=== PATIENT | male | born 1965 | race Caucasian/White ===

== ENCOUNTER 2020-04-09 08:40 | Inpatient (IN) | payer OTHER ==
--- NOTE | 2020-04-09 09:15 | BHS.RME ---
Substance Use & Tx History - Substance Use History Heroin Substance amount: 8 bags Frequency of use: Daily Substance route: Injection (ex: intravenous or skin popping) Date of Last Use: 04/08/20 (First use age 22. No OD, No Narcan) Nicotine Substance amount: one pack Frequency of use: Daily Substance route: Smoking Date of Last Use: 04/09/20 (First smoke age 22 y) Physical/Psych/Mental Status - Behavior General Behavior: Increased activity (restlessness, agitation) Eye Contact: Normal - Cooperativeness Cooperativeness: Cooperative - Thinking Thought Processes: Tight Thought content: Future oriented - Physical Health Problems Is patient presently having any pain?: Yes (chronic neck and low back pain) Does patient presently have any injuries (include location): No Does patient currently have a fever: No COWS - Scale Resting Pulse: 0= [place] 80 or Below Sweatin= No chills or Flushing Restless Observation: 1= Difficult to Sit Still Pupil Size: 0= Normal to Room Light Bone or Joint Aches: 1= Mild Discomfort Runny Nose/ Eye Tearin= Nasal Congestion GI Upset > 30mins: 1= Stomach Cramp Tremor Observation: 2= Slight Tremor Visible Yawning Observation: 0= None Anxiety or Irritability: 1=Feels Anxious/Irritable Goose Flesh Skin: 0=Smooth Skin COWS Score: 7
--- NOTE | 2020-04-09 09:55 | HP ---
COWS - Scale Resting Pulse: 0= [place] 80 or Below Sweatin= No chills or Flushing Restless Observation: 1= Difficult to Sit Still Pupil Size: 0= Normal to Room Light Bone or Joint Aches: 1= Mild Discomfort Runny Nose/ Eye Tearin= Nasal Congestion GI Upset > 30mins: 1= Stomach Cramp Tremor Observation: 2= Slight Tremor Visible Yawning Observation: 0= None Anxiety or Irritability: 1=Feels Anxious/Irritable Goose Flesh Skin: 0=Smooth Skin COWS Score: 7 CIWA Score - Admission Criteria OASAS Guidelines: Admission for Medically Managed Detox: Requires at least one of the followin. CIWA greater than 12 2. Seizures within the past 24 hours 3. Delirium tremens within the past 24 hours 4. Hallucinations within the past 24 hours 5. Acute intervention needed for co occurring medical disorder 6. Acute intervention needed for co occurring psychiatric disorder 7. Severe withdrawal that cannot be handled at a lower level of care (continued vomiting, continued diarrhea, abnormal vital signs) requiring intravenous medication and/or fluids 8. Admitting History and Physical - Admission Chief Complaint: " I want to detox from everything. I want to go aftercare at [facility]" History of Present Illness: 54 year old male with history of opioid dependence who was in suboxone treatment in [facility] but stopped 1 month ago. He states it was too far for him to go to [facility]. He wishes to go to [facility] upon completion of detox this time. Heroin: 8 bags heroin IV, started at age 22 and last used 04/08/20, never overdosed but does not carry narcan Nicotine: 1 PPD, started smoking at the age of 22 PMH: Asthma, Seasonal Allergies and Perennial allergies. All: Dust, pollen, and PCN Psurg: None Psych: Bipolar, Schizophrenia, Meds - can't remember names states took it last night. He lives in his own apartment in [place]. He is on parole for robbery for 5 years. He meets criteria for detox as he is at high risk for overdose from heroin due to injection use and no narcan kit. He also has psychiatric co-morbidities. COWS=7 due to use late last night. History Source: Patient Limitations to Obtaining History: No Limitations - Past Medical History Pulmonary: Yes: Asthma - Past Surgical History Past Surgical History: Yes: None - Smoking History Smoking history: Current every day smoker Have you smoked in the past 12 months: Yes Aproximately how many cigarettes per day: 20 - Alcohol/Substance Use Hx Alcohol Use: No History of Substance Use: reports: Heroin - Social History Usual Living Arrangement: Yes: Alone Do you think of yourself as: Straight/Heterosexual ADL: Independent Occupation: SSI due to psychiatric diagnoses History of Recent Travel: No Admission ROS BHS - HPI Exam Limitations: No Limitations - Ebola screening Have you traveled outside of the country in the last 21 days: No Have you had contact with anyone from an Ebola affected area: No Have you been sick,other than usual withdrawal symptoms: No Do you have a fever: No - Review of Systems Constitutional: Chills, Unintentional Wgt. Loss EENT: reports: No Symptoms Reported Respiratory: reports: No Symptoms reported Cardiac: reports: No Symptoms Reported GI: reports: No Symptoms Reported : reports: No Symptoms Reported Musculoskeletal: reports: No Symptoms Reported Integumentary: reports: No Symptoms Reported Neuro: reports: No Symptoms reported Endocrine: reports: No Symptoms Reported Hematology: reports: No Symptoms Reported Psychiatric: reports: Judgement Intact, Mood/Affect Appropiate, Orientated x3, Agitated, Anxious Other Systems: Reviewed and Negative Patient History - Patient Medical History Hx Asthma: Yes Hx Chronic Obstructive Pulmonary Disease (COPD): No Hx Cancer: No Hx Cardiac Disorders: No Hx Congestive Heart Failure: No Hx Hypertension: No Hx Hypercholesterolemia: No Hx Pacemaker: No HX Cerebrovascular Accident: No Hx Seizures: No Hx Dementia: No Hx Diabetes: No Hx Gastrointestinal Disorders: No Hx Liver Disease: Yes (HCV treated with Harvoni 2018) Hx Genitourinary Disorders: No Hx Sexually Transmitted Disorders: No Hx Renal Disease (ESRD): No Hx Thyroid Disease: No Hx Human Immunodeficiency Virus (HIV): No (tested last 6 months ago) Hx Hepatitis C: No Hx Depression: No Hx Suicide Attempt: No Hx Bipolar Disorder: No Hx Schizophrenia: No - Patient Surgical History Past Surgical History: No - PPD History Previous Implant?: Yes Documented Results: Negative w/o proof Implanted On Prior [facility] Admission?: No Date: 08/11/19 Results: negative PPD to be Administered?: Yes - Smoking Cessation Smoking history: Current every day smoker Have you smoked in the past 12 months: Yes Aproximately how many cigarettes per day: 20 Hx Chewing Tobacco Use: No Initiated information on smoking cessation: Yes 'Breaking Loose' booklet given: 04/09/20 - Substances abused Heroin Substance route: Injection Frequency: Daily Amount used: 8 bags Age of first use: 23 Date of last use: 04/08/20 Admission Physical Exam [facility] - Physical General Appearance: Yes: Thin, Tremorous, Irritable, Anxious HEENTM: Yes: EOMI, Hearing grossly Normal, Normal ENT Inspection, Normocephalic, Normal Voice, ANTON, Pharynx Normal, Tm's normal Respiratory: Yes: Chest Non-Tender, Lungs Clear, Normal Breath Sounds, No Respiratory Distress, No Accessory Muscle Use Neck: Yes: No masses,lesions,Nodules, Supple, Trachea in good position Breast: Yes: Within Normal Limits Cardiology: Yes: Regular Rhythm, Regular Rate, S1, S2 Abdominal: Yes: Normal Bowel Sounds, Non Tender, Flat, Soft Genitourinary: Yes: Within Normal Limits Back: Yes: Normal Inspection Musculoskeletal: Yes: full range of Motion, Gait Steady, Pelvis Stable Extremities: Yes: Normal Capillary Refill, Normal Inspection, Normal Range of Motion, Non-Tender Neurological: Yes: integrity manager II-XII NML intact, Fully Oriented, Alert, Motor Strength 5/5, Normal Mood/Affect, Normal Response Integumentary: Yes: Normal Color, Dry, Warm Lymphatic: Yes: Within Normal Limits - Diagnostic (1) Asthma Current Visit: Yes Status: Acute (2) HCV (hepatitis C virus) Current Visit: Yes Status: Acute (3) Schizophrenia Current Visit: Yes Status: Acute (4) Major depression in full remission Current Visit: Yes Status: Acute (5) Bipolar 1 disorder Current Visit: Yes Status: Acute Cleared for Admission [facility] - Detox or Rehab [facility] Level of Care: Medically Managed Detox Regimen/Protocol: Methadone Claeared for Rehab Admission: No Screened but not Admitted - Documentation of Visit Screened but not Admitted: No Breathalyzer - Breathalyzer Breathalyzer: 0 Urine Drug Screen - Test Device Lot number: [id number] Expiration date: 06/04/21 - Control Is test valid?: Yes - Results Drug screen NEGATIVE: No Urine drug screen results: FEN-Fentanyl, MOP-Opiates, BUP-Suboxone Inpatient Rehab Admission - Rehab Decision to Admit Inpatient rehab admission?: No
[2020-04-09] MEDS ORDERED: NICOTINE POLACRILEX 2 MG GUM BUC PRN (10:24)
[2020-04-09] MEDS ORDERED: MAGNESIUM CITRATE 300 ML BOTTLE PO PRN (10:24)
[2020-04-09] MEDS ORDERED: BISMUTH SUBSALICYLATE 524 MG/30 ML UD PO PRN (10:24)
[2020-04-09] MEDS ORDERED: MENTHOL/PHENOL 1 EACH UD MM PRN (10:24)
[2020-04-09] MEDS ORDERED: METHOCARBAMOL 500 MG TABLET PO PRN (10:24)
[2020-04-09] MEDS ORDERED: MAGNESIUM HYDROX 2400MG/30ML ORAL SUSPENSION 30 ML CUP PO PRN (10:24)
[2020-04-09] MEDS ORDERED: MAG HYDROX/AL HYDROX/SIMETH 30 ML UNIT-DOSE CUP PO PRN (10:24)
[2020-04-09] MEDS ORDERED: ACETAMINOPHEN 325 MG TABLET (FP) PO PRN ×2 (10:24)
[2020-04-09] MEDS ORDERED: IBUPROFEN 400 MG TABLET (FP) PO PRN (10:24)
[2020-04-09 10:31] VITALS: BMI 18.7
[2020-04-09] MEDS ORDERED: METHADONE HCL 10 MG TABLET (FOR DETOX USE ONLY) PO ONE (11:00)
[2020-04-09] MEDS ORDERED: ONDANSETRON *ODT* 4 MG TABLET SL ONE (11:00)
[2020-04-09] MEDS: cloNIDine HCL 0.1 MG TABLET PO PRN (11:17)
[2020-04-09] MEDS: PRENATAL VITAMINS W/ FOLIC ACID TABLET (FP) PO SCH (11:19)
[2020-04-09] MEDS: NICOTINE 7 MG/24 HOURS TOPICAL PATCH TD SCH (11:19)
[2020-04-09] MEDS: hydrOXYzine PAMOATE 25 MG CAPSULE (FP) PO SCH ×3 (14:35→23:17)
[2020-04-09 14:51] LABS: HEMOGLOBIN 13.1 GM/dL (11.7-16.9); MCH 27.6 pg (25.7-33.7); MCHC 31.3 g/dl (32.0-35.9); MEAN PLT VOLUME 10.7 fl (7.5-11.1); PLATELET COUNT 167 K/MM3 (134-434); RBC 4.77 M/mm3 (4.00-5.60); RDW 15.3 % (11.9-15.9)
[2020-04-09 15:15] LABS: ALBUMIN 3.9 g/dl (3.4-5.0); BLOOD UREA NITROGEN 16.3 mg/dL (7-18); POTASSIUM 3.9 mmol/L (3.5-5.1)
[2020-04-09 15:21] LABS: BILIRUBIN,TOTAL 0.5 mg/dL (0.2-1)
[2020-04-09] MEDS: MELATONIN 5 MG TABLETS PO SCH (23:16)
[2020-04-09] MEDS: MOMETASONE FUROATE 220 MCG/IH INHALER IH SCH (23:16)
[2020-04-09] MEDS: THIAMINE HCL 100 MG TABLET (FP) PO SCH (23:17)
[2020-04-10] MEDS: hydrOXYzine PAMOATE 25 MG CAPSULE (FP) PO SCH ×5 (05:26→22:01)
[2020-04-10] MEDS ORDERED: METHADONE HCL 10 MG TABLET (FOR DETOX USE ONLY) ONE (08:44)
[2020-04-10] MEDS ORDERED: METHADONE HCL 5 MG TABLET (FOR DETOX USE ONLY) ONE (08:44)
[2020-04-10] MEDS ORDERED: METHADONE (DETOX) 20 MG, METHADONE (DETOX) 5 MG PO ONE (10:00)
--- NOTE | 2020-04-10 10:11 | PN ---
S COWS - Scale Resting Pulse: 0= [place] 80 or Below Sweatin= No chills or Flushing Restless Observation: 3= Extraneous Movement Pupil Size: 1= Pupils >than Normal Bone or Joint Aches: 2= Severe Diffuse Aches Runny Nose/ Eye Tearin= Runny Nose/Eyes GI Upset > 30mins: 2= Nausea/Diarrhea Tremor Observation of Outstretched Hands: 2= Slight Tremor Visible Yawning Observation: 1= 1-2x During Session Anxiety or Irritability: 2=Irritable/Anxious Goose Flesh Skin: 0=Smooth Skin COWS Score: 15 [facility] Progress Note (SOAP) Subjective: alert,irritable,anxious,interrupted sleep,pain in the body,back,nausea,diarrhea, Objective: 04/10/20 10:16 Vital Signs Temperature 98.1 F 04/10/20 08:34 Pulse Rate 56 L 04/10/20 08:34 Respiratory Rate 18 04/10/20 08:34 Blood Pressure 155/80 04/10/20 08:34 O2 Sat by Pulse Oximetry (%) 100 04/10/20 06:18 Laboratory Last Values WBC 8.0 K/mm3 (4.0-10.0) 04/09/20 10:30 RBC 4.77 M/mm3 (4.00-5.60) 04/09/20 10:30 Hgb 13.1 GM/dL (11.7-16.9) 04/09/20 10:30 Hct 42.0 % (35.4-49) 04/09/20 10:30 MCV 88.0 fl (80-96) 04/09/20 10:30 MCH 27.6 pg (25.7-33.7) 04/09/20 10:30 MCHC 31.3 g/dl (32.0-35.9) L 04/09/20 10:30 RDW 15.3 % (11.9-15.9) 04/09/20 10:30 Plt Count 167 K/MM3 (134-434) 04/09/20 10:30 MPV 10.7 fl (7.5-11.1) 04/09/20 10:30 Sodium 140 mmol/L (136-145) 04/09/20 10:30 Potassium 3.9 mmol/L (3.5-5.1) 04/09/20 10:30 Chloride 102 mmol/L (98-107) 04/09/20 10:30 Carbon Dioxide 32 mmol/L (21-32) 04/09/20 10:30 Anion Gap 6 MMOL/L (8-16) L 04/09/20 10:30 BUN 16.3 mg/dL (7-18) 04/09/20 10:30 Creatinine 1.0 mg/dL (0.55-1.3) 04/09/20 10:30 Est GFR (CKD-EPI)AfAm 99.85 04/09/20 10:30 Est GFR (CKD-EPI)NonAf 86.15 04/09/20 10:30 Random Glucose 90 mg/dL (74-106) 04/09/20 10:30 Calcium 9.0 mg/dL (8.5-10.1) 04/09/20 10:30 Total Bilirubin 0.5 mg/dL (0.2-1) 04/09/20 10:30 AST 25 U/L (15-37) 04/09/20 10:30 ALT 31 U/L (13-61) 04/09/20 10:30 Alkaline Phosphatase 80 U/L (45-117) 04/09/20 10:30 Total Protein 8.0 g/dl (6.4-8.2) 04/09/20 10:30 Albumin 3.9 g/dl (3.4-5.0) 04/09/20 10:30 Syphilis Serology Non-reactive (NONREACTIVE) 04/09/20 10:30 HIV Ag/Ab Combo Qual Negative (NEGATIVE) 04/09/20 11:35 Assessment: 04/10/20 10:17 withdrawal symptom Plan: continue detox methadone regimen,valium 10 mgs po q 4hrs prn for 72 hours for severe withdrawal
[2020-04-10] MEDS: NICOTINE 7 MG/24 HOURS TOPICAL PATCH TD SCH (10:14)
[2020-04-10] MEDS: PRENATAL VITAMINS W/ FOLIC ACID TABLET (FP) PO SCH (10:15)
[2020-04-10] MEDS: cloNIDine HCL 0.1 MG TABLET PO PRN ×2 (10:16→22:02)
[2020-04-10] MEDS ORDERED: PNEUMOC 13-VAL CONJ-DIP CRM/PF 0.5 ML DISP.SYRIN IM ONE (12:00)
--- NOTE | 2020-04-10 12:13 | EKG ---
Test Reason : Blood Pressure : / mmHG Vent. Rate : 051 BPM Atrial Rate : 051 BPM P-R Int : 166 ms QRS Dur : 090 ms QT Int : 424 ms P-R-T Axes : 071 016 034 degrees QTc Int : 390 ms SINUS BRADYCARDIA MODERATE VOLTAGE CRITERIA FOR LVH, MAY BE NORMAL VARIANT BORDERLINE ECG NO PREVIOUS ECGS AVAILABLE Confirmed by MD Derrick, Brandon ([id number]) on 04/10/2020 12:12:59 PM Referred By: Confirmed By:Brandon Meza MD
[2020-04-10] MEDS: THIAMINE HCL 100 MG TABLET (FP) PO SCH (22:01)
[2020-04-10] MEDS: MELATONIN 5 MG TABLETS PO SCH (22:03)
[2020-04-10] MEDS: MOMETASONE FUROATE 220 MCG/IH INHALER IH SCH (22:03)
[2020-04-11] MEDS: hydrOXYzine PAMOATE 25 MG CAPSULE (FP) PO SCH ×3 (05:13→14:54)
[2020-04-11] MEDS ORDERED: METHADONE HCL 10 MG TABLET (FOR DETOX USE ONLY) PO ONE (10:00)
[2020-04-11] MEDS: PRENATAL VITAMINS W/ FOLIC ACID TABLET (FP) PO SCH (10:34)
[2020-04-11] MEDS: NICOTINE 7 MG/24 HOURS TOPICAL PATCH TD SCH (10:34)
--- NOTE | 2020-04-11 11:00 | PN ---
BHS COWS - Scale Resting Pulse: 0= [place] 80 or Below Sweatin= No chills or Flushing Restless Observation: 0= Sits Still Pupil Size: 1= Pupils >than Normal Bone or Joint Aches: 1= Mild Discomfort Runny Nose/ Eye Tearin= Nasal Congestion GI Upset > 30mins: 1= Stomach Cramp Tremor Observation of Outstretched Hands: 2= Slight Tremor Visible Yawning Observation: 1= 1-2x During Session Anxiety or Irritability: 2=Irritable/Anxious Goose Flesh Skin: 0=Smooth Skin COWS Score: 9 [facility] Progress Note (SOAP) Subjective: alert,irritable,anxious,interrupted sleep,pain in the body and back Objective: 04/11/20 10:59 Vital Signs Temperature 97.0 F L 04/11/20 08:30 Pulse Rate 58 L 04/11/20 08:30 Respiratory Rate 18 04/11/20 08:30 Blood Pressure 129/72 04/11/20 08:30 O2 Sat by Pulse Oximetry (%) 100 04/11/20 05:07 Laboratory Last Values WBC 8.0 K/mm3 (4.0-10.0) 04/09/20 10:30 RBC 4.77 M/mm3 (4.00-5.60) 04/09/20 10:30 Hgb 13.1 GM/dL (11.7-16.9) 04/09/20 10:30 Hct 42.0 % (35.4-49) 04/09/20 10:30 MCV 88.0 fl (80-96) 04/09/20 10:30 MCH 27.6 pg (25.7-33.7) 04/09/20 10:30 MCHC 31.3 g/dl (32.0-35.9) L 04/09/20 10:30 RDW 15.3 % (11.9-15.9) 04/09/20 10:30 Plt Count 167 K/MM3 (134-434) 04/09/20 10:30 MPV 10.7 fl (7.5-11.1) 04/09/20 10:30 Sodium 140 mmol/L (136-145) 04/09/20 10:30 Potassium 3.9 mmol/L (3.5-5.1) 04/09/20 10:30 Chloride 102 mmol/L (98-107) 04/09/20 10:30 Carbon Dioxide 32 mmol/L (21-32) 04/09/20 10:30 Anion Gap 6 MMOL/L (8-16) L 04/09/20 10:30 BUN 16.3 mg/dL (7-18) 04/09/20 10:30 Creatinine 1.0 mg/dL (0.55-1.3) 04/09/20 10:30 Est GFR (CKD-EPI)AfAm 99.85 04/09/20 10:30 Est GFR (CKD-EPI)NonAf 86.15 04/09/20 10:30 Random Glucose 90 mg/dL (74-106) 04/09/20 10:30 Calcium 9.0 mg/dL (8.5-10.1) 04/09/20 10:30 Total Bilirubin 0.5 mg/dL (0.2-1) 04/09/20 10:30 AST 25 U/L (15-37) 04/09/20 10:30 ALT 31 U/L (13-61) 04/09/20 10:30 Alkaline Phosphatase 80 U/L (45-117) 04/09/20 10:30 Total Protein 8.0 g/dl (6.4-8.2) 04/09/20 10:30 Albumin 3.9 g/dl (3.4-5.0) 04/09/20 10:30 Syphilis Serology Non-reactive (NONREACTIVE) 04/09/20 10:30 COVID-19 ([facility]) Not detected (Not Detected) 04/09/20 11:30 HIV Ag/Ab Combo Qual Negative (NEGATIVE) 04/09/20 11:35 Assessment: 04/11/20 11:00 withdrawal symptom Plan: continue detox methadone regimen,valium 10 mgs po q 4 hrs prn for severe withdrawal for 72 hrs
[2020-04-11] MEDS: MELATONIN 5 MG TABLETS PO SCH (22:05)
[2020-04-11] MEDS: MOMETASONE FUROATE 220 MCG/IH INHALER IH SCH (22:05)
[2020-04-11] MEDS: THIAMINE HCL 100 MG TABLET (FP) PO SCH (22:06)
[2020-04-12] MEDS: hydrOXYzine PAMOATE 25 MG CAPSULE (FP) PO PRN ×2 (05:38→22:13)
--- NOTE | 2020-04-12 08:48 | PN ---
BHS COWS - Scale Resting Pulse: 0= ME 80 or Below Sweatin= No chills or Flushing Restless Observation: 0= Sits Still Pupil Size: 0= Normal to Room Light Bone or Joint Aches: 1= Mild Discomfort Runny Nose/ Eye Tearin= Nasal Congestion GI Upset > 30mins: 1= Stomach Cramp Tremor Observation of Outstretched Hands: 2= Slight Tremor Visible Yawning Observation: 0= None Anxiety or Irritability: 2=Irritable/Anxious Goose Flesh Skin: 0=Smooth Skin COWS Score: 7 [facility] Progress Note (SOAP) Subjective: alert,irritable,anxious,interrupted sleep,pain in the body and back, Objective: 04/12/20 08:57 Vital Signs Temperature 97.7 F 04/11/20 16:30 Pulse Rate 47 L 04/12/20 05:07 Respiratory Rate 18 04/12/20 05:07 Blood Pressure 142/80 04/12/20 05:07 O2 Sat by Pulse Oximetry (%) 98 04/12/20 05:07 04/12/20 08:58 Laboratory Last Values WBC 8.0 K/mm3 (4.0-10.0) 04/09/20 10:30 RBC 4.77 M/mm3 (4.00-5.60) 04/09/20 10:30 Hgb 13.1 GM/dL (11.7-16.9) 04/09/20 10:30 Hct 42.0 % (35.4-49) 04/09/20 10:30 MCV 88.0 fl (80-96) 04/09/20 10:30 MCH 27.6 pg (25.7-33.7) 04/09/20 10:30 MCHC 31.3 g/dl (32.0-35.9) L 04/09/20 10:30 RDW 15.3 % (11.9-15.9) 04/09/20 10:30 Plt Count 167 K/MM3 (134-434) 04/09/20 10:30 MPV 10.7 fl (7.5-11.1) 04/09/20 10:30 Sodium 140 mmol/L (136-145) 04/09/20 10:30 Potassium 3.9 mmol/L (3.5-5.1) 04/09/20 10:30 Chloride 102 mmol/L (98-107) 04/09/20 10:30 Carbon Dioxide 32 mmol/L (21-32) 04/09/20 10:30 Anion Gap 6 MMOL/L (8-16) L 04/09/20 10:30 BUN 16.3 mg/dL (7-18) 04/09/20 10:30 Creatinine 1.0 mg/dL (0.55-1.3) 04/09/20 10:30 Est GFR (CKD-EPI)AfAm 99.85 04/09/20 10:30 Est GFR (CKD-EPI)NonAf 86.15 04/09/20 10:30 Random Glucose 90 mg/dL (74-106) 04/09/20 10:30 Calcium 9.0 mg/dL (8.5-10.1) 04/09/20 10:30 Total Bilirubin 0.5 mg/dL (0.2-1) 04/09/20 10:30 AST 25 U/L (15-37) 04/09/20 10:30 ALT 31 U/L (13-61) 04/09/20 10:30 Alkaline Phosphatase 80 U/L (45-117) 04/09/20 10:30 Total Protein 8.0 g/dl (6.4-8.2) 04/09/20 10:30 Albumin 3.9 g/dl (3.4-5.0) 04/09/20 10:30 Syphilis Serology Non-reactive (NONREACTIVE) 04/09/20 10:30 COVID-19 ([facility]) Not detected (Not Detected) 04/09/20 11:30 HIV Ag/Ab Combo Qual Negative (NEGATIVE) 04/09/20 11:35 Assessment: 04/12/20 08:59 withdrawal symptom Plan: continue detox methadone regimen
[2020-04-12] MEDS ORDERED: METHADONE HCL 5 MG TABLET (FOR DETOX USE ONLY) ONE (09:04)
[2020-04-12] MEDS ORDERED: METHADONE HCL 10 MG TABLET (FOR DETOX USE ONLY) ONE (09:04)
[2020-04-12] MEDS ORDERED: METHADONE (DETOX) 10 MG, METHADONE (DETOX) 5 MG PO ONE (10:00)
[2020-04-12] MEDS: NICOTINE 7 MG/24 HOURS TOPICAL PATCH TD SCH (10:06)
[2020-04-12] MEDS: PRENATAL VITAMINS W/ FOLIC ACID TABLET (FP) PO SCH (10:06)
[2020-04-12] MEDS: diazePAM 5 MG TABLET PO PRN ×2 (13:45→18:47)
[2020-04-12] MEDS: MELATONIN 5 MG TABLETS PO SCH (22:12)
[2020-04-12] MEDS: THIAMINE HCL 100 MG TABLET (FP) PO SCH (22:12)
[2020-04-12] MEDS: MOMETASONE FUROATE 220 MCG/IH INHALER IH SCH (23:04)
[2020-04-13] MEDS: hydrOXYzine PAMOATE 25 MG CAPSULE (FP) PO PRN ×2 (05:13→10:38)
[2020-04-13] MEDS ORDERED: cloNIDine HCL 0.1 MG TABLET PO ONE ×2 (07:47→11:06)
--- NOTE | 2020-04-13 07:56 | PN ---
S Progress Note Note: Patient's blood pressure is B/P 162/98 and B/P 163/ 93 respectively. Patient is asymptomatic Vital Signs 04/13/20 04/13/20 04/13/20 05:09 07:05 07:06 Temperature 97.3 F L Pulse Rate 52 L 54 L 54 L Respiratory 16 Rate Blood Pressure 154/101 H 162/98 163/93 O2 Sat by Pulse 100 Oximetry (%) Action: Clonidine 0.1mg tablet daily order.
[2020-04-13] MEDS ORDERED: METHADONE HCL 10 MG TABLET (FOR DETOX USE ONLY) PO ONE (10:00)
[2020-04-13] MEDS: PRENATAL VITAMINS W/ FOLIC ACID TABLET (FP) PO SCH (10:35)
[2020-04-13] MEDS: NICOTINE 7 MG/24 HOURS TOPICAL PATCH TD SCH (10:35)
--- NOTE | 2020-04-13 11:01 | PN ---
[facility]HS COWS - Scale Resting Pulse: 0= [place] 80 or Below Sweatin= No chills or Flushing Restless Observation: 0= Sits Still Pupil Size: 0= Normal to Room Light Bone or Joint Aches: 1= Mild Discomfort Runny Nose/ Eye Tearin= Nasal Congestion GI Upset > 30mins: 1= Stomach Cramp Tremor Observation of Outstretched Hands: 0= None Yawning Observation: 0= None Anxiety or Irritability: 1=Feels Anxious/Irritable Goose Flesh Skin: 0=Smooth Skin COWS Score: 4 [facility] Progress Note (SOAP) Subjective: alert,irritable,interrupted sleep Objective: 04/13/20 10:48 Vital Signs Temperature 97.5 F L 04/13/20 08:47 Pulse Rate 67 04/13/20 08:47 Respiratory Rate 16 04/13/20 08:47 Blood Pressure 154/97 04/13/20 08:47 O2 Sat by Pulse Oximetry (%) 100 04/13/20 05:09 Assessment: 04/13/20 10:49 withdrawal symptom Plan: continue detox methadone regimen,discharge in am
[2020-04-13] MEDS ORDERED: cloNIDine HCL 0.1 MG TABLET PO SCH (22:00)
[2020-04-13] MEDS: MOMETASONE FUROATE 220 MCG/IH INHALER IH SCH (22:09)
[2020-04-13] MEDS: THIAMINE HCL 100 MG TABLET (FP) PO SCH (22:09)
[2020-04-13] MEDS: MELATONIN 5 MG TABLETS PO SCH (22:09)
[2020-04-14] MEDS ORDERED: METHADONE HCL 5 MG TABLET (FOR DETOX USE ONLY) PO ONE (06:00)
[2020-04-14 09:16] VITALS: BP 148/98; PULSE 66; TEMP 97.5
--- NOTE | 2020-04-14 12:39 | DS ---
[facility] Detox Discharge Summary Admission Date: 04/09/20 Discharge Date: 04/14/20 - History Present History: Opioid Dependence Additional Comments: Alert and oriented x3, in no acute respiratory distress. Full ROM, ambulatory on unit. Detox protocol completed and pt is medically stable for discharge today. Vital Signs 04/14/20 04/14/20 05:10 08:32 Temperature 98.7 F 97.5 F L Pulse Rate 53 L 66 Respiratory 16 18 Rate Blood Pressure 144/95 148/98 O2 Sat by Pulse 100 Oximetry (%) Laboratory Last Values WBC 8.0 K/mm3 (4.0-10.0) 04/09/20 10:30 RBC 4.77 M/mm3 (4.00-5.60) 04/09/20 10:30 Hgb 13.1 GM/dL (11.7-16.9) 04/09/20 10:30 Hct 42.0 % (35.4-49) 04/09/20 10:30 MCV 88.0 fl (80-96) 04/09/20 10:30 MCH 27.6 pg (25.7-33.7) 04/09/20 10:30 MCHC 31.3 g/dl (32.0-35.9) L 04/09/20 10:30 RDW 15.3 % (11.9-15.9) 04/09/20 10:30 Plt Count 167 K/MM3 (134-434) 04/09/20 10:30 MPV 10.7 fl (7.5-11.1) 04/09/20 10:30 Sodium 140 mmol/L (136-145) 04/09/20 10:30 Potassium 3.9 mmol/L (3.5-5.1) 04/09/20 10:30 Chloride 102 mmol/L (98-107) 04/09/20 10:30 Carbon Dioxide 32 mmol/L (21-32) 04/09/20 10:30 Anion Gap 6 MMOL/L (8-16) L 04/09/20 10:30 BUN 16.3 mg/dL (7-18) 04/09/20 10:30 Creatinine 1.0 mg/dL (0.55-1.3) 04/09/20 10:30 Est GFR (CKD-EPI)AfAm 99.85 04/09/20 10:30 Est GFR (CKD-EPI)NonAf 86.15 04/09/20 10:30 Random Glucose 90 mg/dL (74-106) 04/09/20 10:30 Calcium 9.0 mg/dL (8.5-10.1) 04/09/20 10:30 Total Bilirubin 0.5 mg/dL (0.2-1) 04/09/20 10:30 AST 25 U/L (15-37) 04/09/20 10:30 ALT 31 U/L (13-61) 04/09/20 10:30 Alkaline Phosphatase 80 U/L (45-117) 04/09/20 10:30 Total Protein 8.0 g/dl (6.4-8.2) 04/09/20 10:30 Albumin 3.9 g/dl (3.4-5.0) 04/09/20 10:30 Syphilis Serology Non-reactive (NONREACTIVE) 04/09/20 10:30 COVID-19 ([facility]) Not detected (Not Detected) 04/09/20 11:30 HIV Ag/Ab Combo Qual Negative (NEGATIVE) 04/09/20 11:35 Labs noted. Pertinent Past History: History of asthma, Seasonal allergy, Bipolar, heroin and nicotine use disorder. - Physical Exam Results Vital Signs: Vital Signs Temperature 97.5 F L 04/14/20 08:32 Pulse Rate 66 04/14/20 08:32 Respiratory Rate 18 04/14/20 08:32 Blood Pressure 148/98 04/14/20 08:32 O2 Sat by Pulse Oximetry (%) 100 04/14/20 05:10 Pertinent Admission Physical Exam Findings: withdrawal symptoms. - Treatment Hospital Course: Detox Protocol Followed, Detoxed Safely, Responded well, Discharged Condition Good - Medication Discharge Medications: Ambulatory Orders Budesonide [Pulmicort Flexhaler] 180 mcg IH BID 04/09/20 Buprenorphine/Naloxone [Suboxone 8Mg/2Mg Sl Film -] 1 each SL DAILY 04/09/20 Risperidone 1 mg PO DAILY 04/09/20 Risperidone 2 mg PO HS 04/09/20 - Diagnosis (1) Heroin use Current Visit: Yes Status: Acute (2) Asthma Current Visit: Yes Status: Chronic (3) Bipolar 1 disorder Current Visit: Yes Status: Chronic - AMA Did Patient Leave Against Medical Advice: No
== END 2020-04-14 09:41 | disposition home or self-care (01) | DRG 773 ==
LOC: YASAS 08:40 → Y6N 10:12
PROVIDERS: ADMIT Allergy & Immunology; ATTEND Allergy & Immunology
PROC: HZ2ZZZZ Detoxification Services for Substance Abuse Treatment (ICD-10-PCS; principal; 2020-04-09)
DX: F11.23 Opioid dependence with withdrawal (principal); F17.210 Nicotine dependence, cigarettes, uncomplicated; F31.89 Other bipolar disorder; F20.9 Schizophrenia, unspecified; J45.909 Unspecified asthma, uncomplicated; Z86.19 Personal history of other infectious and parasitic diseases; Z88.0 Allergy status to penicillin
CPT/HCPCS: 36415; 80053; 85027; 86780; 87389; 93005; 93010; J0735; U0003